=== PATIENT | female | born 1970 | race Caucasian/White ===

== ENCOUNTER 2016-11-13 23:20 | Observation (INO) ==
--- NOTE | 2016-11-14 00:06 | Emergency Department Note ---
Alexander Echavarria Gwan, am scribing for, and in the presence of, Alfonso Sparks MD 23:56. Bridger Echavarria Robert M, MD, personally performed the services described in this documentation, ascribed by Jayme Munoz in my presence, and it is both accurate and complete . Arrival - Arrival Chief Complaint: Chest Pain Stated Complaint: CHEST PAIN ED Nursing Triage Note: PT ARRIVES VIA EMS FOR FURTHER EVALUATION OF CHEST PAIN. PT STATES THAT PAIN STARTED AROUND 1800 TODAY. DENIES ANY SOB OR N/V. PT COMPLAINS OF PAIN TO CENTER OF CHEST AT 6/10. Mode of Arrival: Stretcher Limitations: No Limitations Source: Patient, Old Records Reviewed, RN Notes Reviewed Time Seen by Provider: 11/13/16 23:37 - History of Present Illness HPI Narrative: Pt is a 45 y/o female, with a hx of IA, who presents to the ED with a c/o chest pain, WILCOX and right shoulder blade pain with an onset of 1800 today. Patient confirmed that she has stents placed by Dr. Yony Esquivel in [place], that she regularly take Metoprolol and Plaquenil for HTN / RA and that she occasionally take pain medications. She denies any other problems/concerns while in ED. Nurses note that pt reported her pain as a 6 out of 10 and that her pain is located in the center of her chest. Onset (ago): hour(s) Consistency: constant Severity: mild Date of Last Menstrual Period: HYST Allergies/Adverse Reactions: Allergies Allergy/AdvReac Type Severity Reaction Status Date / Time morphine Allergy RASH Verified 11/13/16 23:26 Home Medications: Home Medications Medication Instructions Recorded Confirmed Type Unable To Obtain [Unable to Obtain] 11/13/16 11/13/16 History Review of System - Review of System 12 point system: reviewed and no additional remarkable complaints except as stated - Review of System Cardiovascular: Present: as per HPI, chest pain Neurological: Present: as per HPI, headache Medical,Surgical,& Family Hx - Medical History Cardio: History of: IA (X 3) - Surgical History Cardiac Surgeries: Sugical HX of: Cardiac Catheterization (STENTS) - Social History Smoking Status: Never smoker Frequency of Alcohol Use: None Type of Drug Use: None Exam Vital Signs: Vital Signs Temperature 98.2 F 11/13/16 23:20 Pulse Rate 61 11/13/16 23:52 Respiratory Rate 14 11/13/16 23:52 Blood Pressure 124/70 11/13/16 23:52 O2 Sat by Pulse Oximetry 100 11/13/16 23:52 - General General appearance: alert - Head Head exam: Present: atraumatic, normocephalic - Eye Eye exam: Present: normal appearance, PERRL, EOMI - ENT ENT exam: Present: normal oropharynx, mucous membranes moist, TM's normal bilaterally, normal external ear exam - Neck Neck exam: Present: full ROM, trachea midline. Absent: tenderness, meningismus - Chest Chest inspection: Present: symmetric chest wall rise. Absent: tenderness - Respiratory Respiratory exam: Present: normal lung sounds bilaterally. Absent: respiratory distress - Cardiovascular Cardiovascular exam: Present: regular rate, normal rhythm, normal heart sounds. Absent: murmur, rubs, gallop - Abdominal Exam Abdominal exam: Present: soft, normal bowel sounds. Absent: distention, tenderness, guarding - Extremities Exam Extremities exam: Present: full ROM. Absent: tenderness, pedal edema, calf tenderness - Back Exam Back exam: Present: full ROM. Absent: tenderness - Neurological Exam Neurological exam: Present: alert, oriented X3, CN II-XII intact. Absent: motor sensory deficit - Psychiatric Psychiatric exam: Present: normal affect, normal mood - Skin Skin exam: Present: warm, dry, intact, normal color Course - Consultations Consultation #1: Dr. Nahid Alfaro will evaluate and admit the patient. Time: 00:30 Results - Labs Lab Results: I have reviewed the patients labs Labs: Total Creatine Kinase 1081 U/L (26-192) H 11/13/16 23:27 CK-MB (CK-2) 2.2 U/L (0.5-3.6) 11/13/16 23:27 Troponin I < 0.015 NG/ML (0.00-0.045) 11/13/16 23:27 Disposition Clinical Impression: Chest pain, Rheumatoid arthritis, Chronic pain Case discussed with: patient, patient's family Disposition: Still a Patient Condition: Stable Time of Disposition: 00:32
[2016-11-14 00:16] LABS: Troponin I Only < 0.015 NG/ML (0.00-0.045)
--- NOTE | 2016-11-14 01:54 | Hospitalist History & Physical ---
Assessment and Plan (1) Atypical chest pain Status: Acute Current Visit: Yes (2) Coronary artery disease Status: Acute Current Visit: Yes (3) History of NE (myocardial infarction) Status: Acute Current Visit: Yes (4) History of coronary artery stent placement Status: Acute Current Visit: Yes (5) Chronic pain Status: Acute Current Visit: Yes (6) Hypertension Status: Acute Current Visit: Yes (7) Rheumatoid arthritis Status: Acute Assessment and plan: Plan: 11/14: Chest pain seems atypical, possible musculoskeletal component given reproducibility with movement of the left arm and shoulder. However, she does have a significant cardiac history. We'll obtain another set of cardiac enzymes , monitor on telemetry and may obtain cardiology consultation the morning. Treat supportively for pain and nausea. Current Visit: Yes History of Present Illness Chief complaint: chest pain starting around 6 p.m. History of present illness: Ms. 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 She states her first heart attack was around age 31 and 32. She also states she's had "a stent after one of her heart attacks." She states she had a left heart cath in April by Dr. Esquivel, which she states was "normal." She states around 6 p.m. she was driving and felt sharp stabbing chest pain radiating through to her back. She rated it at out of 10. She states the pain waxed and waned over "a couple hours," but did not resolve and she came to the hospital. She states she has "an upper aortic aneurysm," however CT PE protocol was done showing no acute findings including no PE, no thoracic aortic aneurysm no pericardial effusion. Her main complaint right now is pain when she moves her left arm. She states "I've been doing CrossFit training for the last 6 days." At the end of the interview/exam she reported having some bright red rectal bleeding this morning 2 episodes. Normal H&H at the outside hospital. Home Medications Medication Instructions Recorded Confirmed Type Unable To Obtain [Unable to Obtain] 11/13/16 11/13/16 History Allergies Allergy/AdvReac Type Severity Reaction Status Date / Time morphine Allergy RASH Verified 11/13/16 23:26 Medical,Surgical,& Family Hx - Medical History Cardio: History of: Hypertension, NE (X 3) Endocrine: No history of: Diabetes Mellitus (NIDDM) Rheumatology: History of;: Rheumatoid Arthritis Respiratory: No history of: COPD Musculoskeletal: History of: Musculoskeletal Problems ("chronic pain") - Surgical History Cardiac Surgeries: Sugical HX of: Cardiac Catheterization (STENTS) Abdominal Surgeries: Surgical HX of: Appendectomy Reproductive Surgeries: Surgical HX of;: Tubal Ligation - Family History Family History: Reports;: Family Heart Disease - Social History Smoking Status: Never smoker Frequency of Alcohol Use: None Type of Drug Use: None Marital Status: Unknown Functional capacity: independent ambulation Review of systems: A 12 point review of systems is negative except as specified in the HPI Exam - Constitutional Vitals: Period Temp Pulse Resp BP Sys/Ramey Pulse Ox Last 24 Hr 98.2 F 61-73 14-18 111-124/70-78 98-100 Exam: EXAM: CONSTITUTIONAL: non toxic, NAD HEENT: NC, AT, OP benign, REECE, EOMI CV: RRR no m/g/r, pain is not reproducible with chest wall palpation however somewhat reproducible with movement of the left arm and shoulder RESP: clear B/L, no w/r/r GI: abd soft, NT, ND, +bowel sounds INTEGUMENTARY: no lesions or rash EXTREMITIES: no c/c/e NEURO: no focal deficits PSYCH: unremarkable, A/O x3 Results - Labs Lab Results: I have reviewed the past 24 hour labs - EKG EKG shows: sinus rhythm - Diagnostic Findings Procedure: CT - chest: image reviewed by me, report reviewed by me
[2016-11-14] MEDS ORDERED: BISACODYL 5 MG TABLET PO PRN (02:04)
[2016-11-14] MEDS ORDERED: ACETAMINOPHEN 325 MG TABLET PO PRN (02:04)
[2016-11-14] MEDS: ONDANSETRON 4 MG/2 ML VIAL IV PRN ×5 (03:10→19:44)
[2016-11-14] MEDS: HYDROmorphone 2 MG/1 ML VIAL IV PRN ×5 (03:18→19:43)
[2016-11-14 06:02] LABS: Basophils % 0.3 % (0.0-0.8); Eosinophils # 0.1 10*3/uL (0.0-0.87); Eosinophils % 0.9 % (0.00-10.9); Hematocrit 37.7 VOL% (35.7-47.0); Hemoglobin 12.7 GM/DL (12.0-16.0); Immature Granulocytes % 0.4 %; Immature Granulocytes Absolute 0.03 #; Lymphocytes # 1.5 10*3/uL (1.4-4.0); Lymphocytes % 21.4 % (21.3-54.2); Mean Corpuscular HGB Conc 33.7 GM/DL (32-36); Mean Corpuscular Hemoglobin 32 PG (27-34); Mean Corpuscular Volume 95.2 FL (87-102); Mean Platelet Volume 8.9 FL (9.6-12.0); Monocytes # 0.6 10*3/uL (0.11-0.8); Monocytes % 8.8 % (1.7-12.7); Neutrophils # 4.8 10*3/uL (1.4-7.4); Neutrophils % 68.2 % (38.7-73.9); Platelet Count 219 T/CUMM (130-400); Red Blood Count 3.96 MC/CUMM (3.8-5.5); Red Cell Distribution Width 12.7 % (9.3-17.3)
[2016-11-14 06:29] LABS: Albumin 3.5 G/DL (3.4-5.0); Bilirubin,Total 0.7 MG/DL (0.2-1.0); Calcium 8.2 MG/DL (8.5-10.1); Osmolality,Calculated 284.8 MOS/KG (273-304); Potassium 3.5 MMOL/L (3.5-5.1); Risk Ratio 2.01; Total Protein 6.4 G/DL (6.4-8.3); VLDL CHOLESTEROL 12.2 MG/DL
[2016-11-14 06:30] LABS: Troponin I Only < 0.015 NG/ML (0.00-0.045)
--- NOTE | 2016-11-14 07:52 | CT Report ---
Exam: CT chest PE study Date: 11/13/2016 11:43 PM Comparison: None Indication: Chest pain Technique: Sequential axial scans of the chest were obtained after the injection of 80 cc of Omnipaque 350. Coronal and sagittal 2-D reconstructions were obtained. This exam was initially interpreted by [facility]. Total DLP: 248.40 Findings: The heart is minimally enlarged with no pericardial effusion. No evidence of aortic dissection or pulmonary emboli. No chest lymphadenopathy with small hiatal hernia. Pneumobilia with prior cholecystectomy and minimal dilatation of the bile ducts. Degenerative changes are noted. Calcified granulomata with atelectasis/infiltration/scarring especially in the lower lobes with adjacent minimal diffuse pleural thickening. Impression: No definite pulmonary emboli. The heart is minimally enlarged with small hiatal hernia. Prior cholecystectomy with pneumobilia and minimal dilatation of the bile ducts. Old healed granulomatous disease with minimal atelectasis/infiltration/scarring in the lower lobes with associated diffuse minimal pleural thickening. PROCEDURE INTERPRETED AT [facility] DEPARTMENT OF RADIOLOGY Final Report Signed by: Dr. Chelle Cooper
[2016-11-14] MEDS ORDERED: PANTOPRAZOLE 40 MG TABLET PO SCH (09:00)
--- NOTE | 2016-11-14 10:23 | EKG Report ---
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
[2016-11-14] MEDS ORDERED: ALUM/MAG/SIMETH/LIDO VISC 1:1 30 ML BOTTLE PO ONE (16:20)
[2016-11-14] MEDS ORDERED: ASPIRIN EC 81 MG TABLET PO SCH (16:30)
[2016-11-14] MEDS: SODIUM CHLORIDE 0.9% 1,000 ML IV SCH (16:46)
[2016-11-14] MEDS: PANTOPRAZOLE 40 MG VIAL IV SCH (16:57)
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
--- NOTE | 2016-11-14 18:44 | CT Report ---
Exam: CT abdomen pelvis wo con Date: 11/14/2016 4:20 PM Comparison: CT chest, 11/13/2016 Indication: Intractable nausea and vomiting Technique: Sequential axial scans of the abdomen and pelvis were obtained without contrast. Coronal and sagittal 2-D reconstructions were obtained. Total DLP: 307.50 Findings: The heart is minimally enlarged with atelectasis/scarring at the visualized lung bases. The liver is normal in size with prior cholecystectomy with significant pneumobilia. Dilatation of bile ducts with CBD measuring 12 mm. The spleen, pancreas, adrenal glands, and right kidney have an unremarkable appearance. 2 mm 2 mm 1 mm lower pole left renal calculi with probable tiny left midpole renal cyst. No ureteral calculi are identified. There is retained contrast in the urinary tract from recent CT of the chest. There aorta is normal in size with no adjacent adenopathy. Small hiatal hernia with no dilatation of the small bowel. Diverticulosis of the colon with no evidence of diverticulitis, appendicitis, free air, or free fluid. Nodes in the right lower quadrant which are borderline in size. Status post hysterectomy with small cysts/follicles in the ovaries. Degenerative changes are noted. Impression: Minimal cardiomegaly with atelectasis/scarring at the lung bases. Prior cholecystectomy is significant pneumobilia. Minimal dilatation of the bile ducts with CBD measuring 12 mm. If the patient has bile duct symptoms, ERCP or MRCP may be helpful for further evaluation. No calcified stones or definite mass identified. Nonobstructing left renal calculi with probable tiny left midpole renal cyst. Retained contrast in urinary bladder. Small hiatal hernia with diverticulosis of the colon. Limited evaluation of bowel without oral contrast. Nodes in the right lower quadrant which are borderline in size. Prior hysterectomy with small cysts/follicles in the ovaries. PROCEDURE INTERPRETED AT [facility] DEPARTMENT OF RADIOLOGY Final Report Signed by: Dr. Chelle Cooper
[2016-11-14 18:45] LABS: Troponin I Only < 0.015 NG/ML (0.00-0.045)
--- NOTE | 2016-11-14 18:46 | XRay Report ---
Exam: XR KUB Date: 11/14/2016 4:20 PM Comparison: None Indication: Intractable nausea and vomiting Technique: Supine abdomen Findings: Nonobstructed bowel gas pattern. Prior cholecystectomy with pneumobilia. Minimal dextroscoliosis of the lumbar spine with degenerative changes. Minimal retained contrast in urinary tract. Impression: Nonobstructed bowel gas pattern. Prior cholecystectomy with pneumobilia. PROCEDURE INTERPRETED AT [facility] DEPARTMENT OF RADIOLOGY Final Report Signed by: Dr. Chelle Cooper
[2016-11-15] MEDS: ONDANSETRON 4 MG/2 ML VIAL IV PRN ×4 (00:16→21:31)
[2016-11-15] MEDS: HYDROmorphone 2 MG/1 ML VIAL IV PRN ×6 (00:16→21:30)
[2016-11-15] MEDS: SODIUM CHLORIDE 0.9% 1,000 ML IV SCH ×2 (05:05→21:30)
[2016-11-15 05:30] LABS: Basophils % 0.4 % (0.0-0.8); Eosinophils # 0.1 10*3/uL (0.0-0.87); Eosinophils % 1.3 % (0.00-10.9); Hematocrit 39.6 VOL% (35.7-47.0); Hemoglobin 13.3 GM/DL (12.0-16.0); Immature Granulocytes % 0.4 %; Immature Granulocytes Absolute 0.02 #; Lymphocytes # 1.6 10*3/uL (1.4-4.0); Lymphocytes % 29.1 % (21.3-54.2); Mean Corpuscular HGB Conc 33.6 GM/DL (32-36); Mean Corpuscular Hemoglobin 32 PG (27-34); Mean Corpuscular Volume 95.4 FL (87-102); Mean Platelet Volume 8.9 FL (9.6-12.0); Monocytes # 0.4 10*3/uL (0.11-0.8); Monocytes % 8.1 % (1.7-12.7); Neutrophils # 3.3 10*3/uL (1.4-7.4); Neutrophils % 60.7 % (38.7-73.9); Platelet Count 213 T/CUMM (130-400); Red Blood Count 4.15 MC/CUMM (3.8-5.5); Red Cell Distribution Width 12.6 % (9.3-17.3); White Blood Count 5.4 T/CUMM (4-12)
[2016-11-15 06:08] LABS: Albumin 3.4 G/DL (3.4-5.0); Bilirubin,Total 0.9 MG/DL (0.2-1.0); Calcium 8.4 MG/DL (8.5-10.1); Potassium 3.9 MMOL/L (3.5-5.1); Total Protein 6.2 G/DL (6.4-8.3)
[2016-11-15] MEDS: PANTOPRAZOLE 40 MG VIAL IV SCH (08:30)
[2016-11-15] MEDS: PROMETHAZINE 25 MG/1 ML VIAL IM PRN ×2 (10:15→17:00)
--- NOTE | 2016-11-15 11:41 | Cardiology Progress Note ---
<Georgina Dennison E - Last Filed: 11/15/16 11:25> Assessment and Plan - Time spent with patient Time spent with patient: Less than 30 minutes (1) Dyslipidemia Status: Chronic Assessment and plan: See plan of care listed below Current Visit: Yes (2) Rheumatoid arthritis Status: Chronic Assessment and plan: See plan of care listed below Current Visit: Yes (3) Chronic pain Status: Chronic Assessment and plan: See plan of care listed below Current Visit: Yes (4) Atypical chest pain Status: Acute Assessment and plan: See plan of care listed below Current Visit: Yes (5) Coronary artery disease Status: Chronic Assessment and plan: See plan of care listed below Current Visit: Yes (6) History of coronary artery stent placement Status: Chronic Assessment and plan: See plan of care listed below Current Visit: Yes Cardiology - PN: Subj Interval history: 45-year-old woman routinely followed by Dr. Yony Esquivel in [place], [place]. She was transferred to our emergency department he was 2016 after experiencing chest pain. She has a history of known coronary artery disease. It is reported her first myocardial infarction was around 31 and again at 32. She reportedly had a stent after one of her heart attacks. She had a cardiac catheterization in April [address] Esquivel and received favorable results not requiring additional PCI. She also reported she had "an upper aortic aneurysm". She underwent CT of chest showing no acute findings including no pulmonary emboli, no thoracic aortic aneurysm and no pericardial effusion. She reported the worst discomfort was primarily left arm pain and shoulder pain which was reproducible with movement. She had been working out doing heavy CrossFit training for the past 2 weeks which was unusual for her to participate in that level of physical activity. Total CK at its highest 1081 and trending down to 477. Troponins are negative. EKG does not reveal an acute event. She was scheduled for stress testing this morning when she became nauseated and experienced a significant amount of vomiting. Stress test was canceled and she has been returned to her telemetry room. She is just received Phenergan. Her is at the bedside. She is feeling better at this time and we will plan to proceed with stress testing in the morning. ASSESSMENT/PLAN: 1. CHEST PAIN AND LEFT SHOULDER/ARM PAIN - suspect overuse injury. Troponins negative. EKG unremarkable. Stress test in the morning as she is experiencing severe nausea and vomiting at this time. Will order EKG. 2. KNOWN CAD - continue current plan of care. 3. DYSLIPIDEMIA - LDL 82. 4. RHEUMATOID ARTHRITIS - takes Plaquenil. 5. NAUSEA AND VOMITING - Amylase and Lipase WNL 6. CHRONIC PAIN - receiving narcotics for pain control 7. OVERUSE SYNDROME - CPK elevation related to aggressive working out at [employer], well-above her usual activities. Exam (Progress Note) - Constitutional Vitals: Period Temp Pulse Resp BP Sys/Ramey Pulse Ox Last 24 Hr 97 F-98.5 F 66-90 15-20 100-132/62-89 94-99 General: Pleasant and cooperative. Awake and alert. HEENT: PERRL, normocephalic, atraumatic. Mucous membranes moist. No jaundice noted. Conjunctiva moist and clear, sclerae anicteric Neck: No JVD/HJR, no thyromegaly or lymphadenopathy noted. No carotid bruit appreciated Cardiac: Regular rate and rhythm. No murmur rub or gallop. Lungs: Clear to auscultation without accessory muscle use to assist the respiratory pattern. Not requiring oxygen. Abdomen: Soft, bowel sounds normoactive. Nontender and nondistended. No abdominal bruit or thrill noted. No masses noted. Musculoskeletal: No fluid collection. Decreased range of motion is noted. Extremities: No clubbing, cyanosis noted. No edema noted. Upper extremity pulses 2+. Lower extremity pulses 2+. Capillary refill less than 3 seconds. Skin: No unusual lesions or rashes. No skin breakdown appreciated. Neuro: Awake, alert and oriented 3. Moves all extremities well without hemiparesis or paralysis. No essential tremor is appreciated. Result/EKG - Labs CBC & BMP: 11/15/16 04:54 11/15/16 04:54 Lab Results: I have reviewed the past 24 hour labs Labs: Laboratory Results - last 24 hr 11/14/16 11/14/16 11/15/16 17:52 17:52 04:54 WBC 5.4 RBC 4.15 Hgb 13.3 Hct 39.6 MCV 95.4 MCH 32 MCHC 33.6 RDW 12.6 Plt Count 213 MPV 8.9 L Neut % (Auto) 60.7 Lymph % (Auto) 29.1 Sutton % (Auto) 8.1 Eos % (Auto) 1.3 Baso % (Auto) 0.4 Neut # (Auto) 3.3 Lymph # (Auto) 1.6 Sutton # (Auto) 0.4 Eos # (Auto) 0.1 Baso # (Auto) 0.0 Immature Gran % 0.4 Nucleated RBC % 0.0 Immature Gran # 0.02 Nucleated RBCs # 0.00 Sodium Potassium Chloride Carbon Dioxide Anion Gap BUN Creatinine GFR Calculation BUN/Creatinine Ratio Glucose Calculated Osmolality Calcium Total Bilirubin AST ALT Alkaline Phosphatase Total Creatine Kinase 477 H D CK-MB (CK-2) 1.4 Troponin I < 0.015 Total Protein Albumin Globulin Albumin/Globulin Ratio Amylase 51 Lipase 157.0 11/15/16 04:54 WBC RBC Hgb Hct MCV MCH MCHC RDW Plt Count MPV Neut % (Auto) Lymph % (Auto) Sutton % (Auto) Eos % (Auto) Baso % (Auto) Neut # (Auto) Lymph # (Auto) Sutton # (Auto) Eos # (Auto) Baso # (Auto) Immature Gran % Nucleated RBC % Immature Gran # Nucleated RBCs # Sodium 143 Potassium 3.9 Chloride 106 Carbon Dioxide 26 Anion Gap 14.9 BUN 15 Creatinine 0.60 GFR Calculation 110 BUN/Creatinine Ratio 25.00 H Glucose 70 L Calculated Osmolality 283.0 Calcium 8.4 L Total Bilirubin 0.90 AST 24 ALT 26 Alkaline Phosphatase 132 H Total Creatine Kinase CK-MB (CK-2) Troponin I Total Protein 6.2 L Albumin 3.4 Globulin 2.8 Albumin/Globulin Ratio 1.2 Amylase Lipase - Diagnostic Findings Procedure: CT - chest: report reviewed by me - EKG EKG results: interpreted by me EKG shows: sinus rhythm Quality Measures - VTE Contraindication to Pharmacological VTE Prophylaxis: High Risk of Bleeding <Raman Causey - Last Filed: 11/15/16 14:35> Cardiology - PN: Subj Interval history: I have seen, interviewed, examined the patient and reviewed his chart and discussed the case with the mid-level provider and agree with the plan as outlined in the note. Exam (Progress Note) - Constitutional Vitals: Period Temp Pulse Resp BP Sys/Ramey Pulse Ox Last 24 Hr 97 F-98.5 F 66-86 15-20 111-132/68-89 94-99 Result/EKG - Labs CBC & BMP: 11/15/16 04:54 11/15/16 04:54 Labs: Laboratory Results - last 24 hr 11/14/16 11/14/16 11/15/16 17:52 17:52 04:54 WBC 5.4 RBC 4.15 Hgb 13.3 Hct 39.6 MCV 95.4 MCH 32 MCHC 33.6 RDW 12.6 Plt Count 213 MPV 8.9 L Neut % (Auto) 60.7 Lymph % (Auto) 29.1 Sutton % (Auto) 8.1 Eos % (Auto) 1.3 Baso % (Auto) 0.4 Neut # (Auto) 3.3 Lymph # (Auto) 1.6 Sutton # (Auto) 0.4 Eos # (Auto) 0.1 Baso # (Auto) 0.0 Immature Gran % 0.4 Nucleated RBC % 0.0 Immature Gran # 0.02 Nucleated RBCs # 0.00 Sodium Potassium Chloride Carbon Dioxide Anion Gap BUN Creatinine GFR Calculation BUN/Creatinine Ratio Glucose Calculated Osmolality Calcium Total Bilirubin AST ALT Alkaline Phosphatase Total Creatine Kinase 477 H D CK-MB (CK-2) 1.4 Troponin I < 0.015 Total Protein Albumin Globulin Albumin/Globulin Ratio Amylase 51 Lipase 157.0 11/15/16 04:54 WBC RBC Hgb Hct MCV MCH MCHC RDW Plt Count MPV Neut % (Auto) Lymph % (Auto) Sutton % (Auto) Eos % (Auto) Baso % (Auto) Neut # (Auto) Lymph # (Auto) Sutton # (Auto) Eos # (Auto) Baso # (Auto) Immature Gran % Nucleated RBC % Immature Gran # Nucleated RBCs # Sodium 143 Potassium 3.9 Chloride 106 Carbon Dioxide 26 Anion Gap 14.9 BUN 15 Creatinine 0.60 GFR Calculation 110 BUN/Creatinine Ratio 25.00 H Glucose 70 L Calculated Osmolality 283.0 Calcium 8.4 L Total Bilirubin 0.90 AST 24 ALT 26 Alkaline Phosphatase 132 H Total Creatine Kinase CK-MB (CK-2) Troponin I Total Protein 6.2 L Albumin 3.4 Globulin 2.8 Albumin/Globulin Ratio 1.2 Amylase Lipase
--- NOTE | 2016-11-15 12:04 | CT Report ---
CT head/brain wo/w con Indication: Migraines Comparison: None Technique: Multiple axial tomographic images of the brain were obtained before and after the administration of 80 cc Omnipaque 350 intravenous contrast. Findings: Midline structures are nondisplaced. There is no acute intracranial hemorrhage or hydrocephalus. No abnormal postcontrast intracranial enhancement. Paranasal sinuses and mastoid air cells are clear. IMPRESSION: No acute intracranial abnormality demonstrated. PROCEDURE INTERPRETED AT [facility] DEPARTMENT OF RADIOLOGY Final Report Signed by: Dr Bartolo Paulino
--- NOTE | 2016-11-15 12:06 | Hospitalist Progress Note ---
Assessment and Plan (1) Intractable nausea and vomiting Status: Acute Assessment and plan: CT abd/pelvis showed prior cholecystectomy with significant pneumobilia, dilatation of bile ducts with CBD measuring 12mm.An ERCP vs MRCP has been recommended.KUB showed nonobstructed bowel gas pattern. Prior cholecystectomy with pneumobilia Plan -continue IVF, add Promethazine to Zofran -GI consult -PPI -consider reglan prn Current Visit: Yes (2) Atypical chest pain Status: Acute Assessment and plan: Troponins negative. EKG unremarkable. Stress test was canceled this am due to nausea, vomiting. Cardiology is following Current Visit: Yes (3) Migraine Status: Acute Assessment and plan: will get a CT head, add Fioricet prn, continue anti emetics Current Visit: Yes (4) Rheumatoid arthritis Status: Chronic Assessment and plan: appears stable Current Visit: Yes (5) History of coronary artery stent placement Status: Chronic Assessment and plan: Cardiology is following Current Visit: Yes (6) Chronic pain Status: Acute Assessment and plan: will get pain management consult Current Visit: Yes (7) Dilated bile duct Status: Acute Assessment and plan: CT abd/pelvis showed prior cholecystectomy with significant pneumobilia, dilatation of bile ducts with CBD measuring 12mm.An ERCP vs MRCP has been recommended Plan GI consult Current Visit: Yes Hospitalist: Subjective Interval history: Patient seen. She complains of intractable nausea and vomiting. She also complains of a headache, she has a history of Migraines.Her stress test was canceled this morning due to nausea and vomiting.CT abd/pelvis showed prior cholecystectomy with significant pneumobilia, dilatation of bile ducts with CBD measuring 12mm.An ERCP vs MRCP has been recommended. Exam - Constitutional Vitals: Period Temp Pulse Resp BP Sys/Ramey Pulse Ox Last 24 Hr 97 F-98.5 F 66-86 15-20 111-132/72-89 94-99 General appearance: no acute distress - Respiratory Respiratory exam: Present: clear to auscultation bilaterally - Cardiovascular Cardiovascular exam: Present: regular rate and rhythm - GI/Abdominal GI/Abdominal exam: Present: other (mild tenderness around the RLQ) - Extremities Exam Extremities exam: Present: normal inspection Results - Labs CBC & BMP: 11/15/16 04:54 11/15/16 04:54 Lab Results: I have reviewed the past 24 hour labs Quality Measures - VTE Contraindication to Pharmacological VTE Prophylaxis: High Risk of Bleeding
[2016-11-15] MEDS ORDERED: BUTALBITAL/ACETAMIN/CAFFEINE 50-325-40 MG TABLET PO PRN (12:12)
--- NOTE | 2016-11-15 12:21 | EKG Report ---
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
--- NOTE | 2016-11-15 15:51 | Gastrointestinal Consult Note ---
Assessment and Plan (1) Rectal bleeding Status: Acute Assessment and plan: This patient has a history of previous colonoscopy done 4-[address] Wellington in [place], [place]. This apparently did not show much. The patient has been doing great deal "power-lifting" it certainly may have engorged her hemorrhoids and caused the bleeding especially with this being painless. Since her home stone driller helper has done her colonoscopy in the past and she would take an additional day of prep in order to get her cleaned enough to be able to the colonoscopy here, I suggest she follow up with them in the office to repeat this in the near future. I clearly this is simply hemorrhoidal bleeding but we don't want to miss a proctitis or potential bleeding from a cancer may have been missed versus AVMs or diverticular bleed. Her hematocrit has not dropped significantly during her hospital stay in fact this is improved from 37-39%. They do not suspect that this bleeding is clinically significant. Current Visit: Yes (2) Abnormal CT of the abdomen Status: Acute Assessment and plan: The patient has a history of previous ERCP required for retained stones in her common bile duct and a sphincterotomy done with this procedure is likely resulted in the dilation of common bile duct and pneumobilia seen on CT scanning. Her liver function tests and white blood cell count are completely normal as are her pancreatic enzymes. I suspect that this is a residual from the procedure and not evidence of pathology. It may be in the future that if her alkaline phosphatase begins to elevate as does her bilirubin she may need to have the sludge from a chronically open common bile duct was dredged out using balloon during ERCP. As occurs when the bile acids deconjugated and precipitate in the common bile duct which is dilated anyway and/or exposed to the bacterial elements from the GI tract-- normally this area sterile. This is not a problem that requires addressing at this time however. Again, I would have her follow up with Dr. Felix who did her last ERCP, should she should develop jaundice and/or fevers again. Current Visit: Yes (3) Atypical chest pain Status: Acute Assessment and plan: This may be secondary to musculoskeletal pain most likely the possibility of reflux-induced/esophagitis induced atypical chest pain is certainly present but the patient states that she does not feel reflux symptoms, ever and is not interested in undergoing upper endoscopy. Would continue treating this symptomatically. Current Visit: Yes (4) Intractable nausea and vomiting Status: Acute Assessment and plan: This apparently is doing much better on simple use of Phenergan as a antinauseants. I personally would suggest keeping her on Protonix 40 mg prior to suppertime each night to suppress the acidity in her stomach. She be discharged tomorrow from a GI standpoint as we are not going to perform further procedures on her, and she has a long-term GI physician to follow with. I have given her a copy of the CT scan to compare with others taken in [place]. We' ll see the patient again tomorrow but I believe she can likely be discharged from a GI standpoint, as mentioned above. Current Visit: Yes History of Present Illness Chief complaint: rectal bleeding, dilated common bile duct on CT, atypical chest pain, N/V History of present illness: Ms. Hung is a 45 year old female who has a history of following with 2 gastroenterologists out of [place], [place], Dr. Felix and Dr. Wellington who had performed both ERCP and colonoscopy on the patient. The ERCP was done 2 years ago when the patient developed a septic picture with stone retention in the common bile duct requiring dredging/sphincterotomy. Note that this explains the patient's pneumobilia and dilated common bile duct seen on CT scan this admission. She does not have specific right upper quadrant pain nor is there elevations in her bilirubin/alkaline phosphatase or liver function tests. This is an old finding, patient reassured. She did however presented with atypical chest pain 11/14/16 and was evaluated by Dr. Ward of cardiology and felt to have elevations in her CK levels due to overuse with cross-fit training. The patient absolutely denies any reflux symptoms or heartburn. The pain is improved over time with less use of her muscles. CK levels have begun to return back to normal. She was due to get is cardiac stress test today. Her most recent cardiac catheterization done by her beef pluck trimmer and [place] was normal by report (beef pluck trimmer equals Dr. Yony Esquivel). She has had myocardial infarctions 3 by report, but able to maintain a strenuous exercise regimen at this point. She states that she can did lift 85 pounds, and that she been exercising 6 days straight when she developed atypical chest pain bringing her to the hospital. She does have some mild constipation and has noted some rectal bleeding lately that she thinks maybe hemorrhoids that she relates to her weightlifting. The rectal bleeding is less than a tablespoonful and is painless. Again note that the patient had a previous colonoscopy done 4-5 years ago by her stone driller helper Kanchan this was negative for abnormalities. She is planning on repeat presenting to them with this latest episode of bleeding to see if they want to do a repeat as an outpatient. This is appropriate. Home Medications Medication Instructions Recorded Confirmed Type Unable To Obtain [Unable to Obtain] 11/13/16 11/13/16 History Allergies Allergy/AdvReac Type Severity Reaction Status Date / Time morphine Allergy RASH Verified 11/13/16 23:26 Medical,Surgical,& Family Hx - Medical History Cardio: History of: Hypertension, AR (X 3) Endocrine: No history of: Diabetes Mellitus (NIDDM) Rheumatology: History of;: Rheumatoid Arthritis Respiratory: No history of: COPD Musculoskeletal: History of: Musculoskeletal Problems ("chronic pain") - Surgical History Cardiac Surgeries: Sugical HX of: Cardiac Catheterization (STENTS) Abdominal Surgeries: Surgical HX of: Appendectomy Reproductive Surgeries: Surgical HX of;: Tubal Ligation - Family History Family History: Reports;: Family Heart Disease - Social History Smoking Status: Never smoker Frequency of Alcohol Use: None Type of Drug Use: None Review of systems: Constitutional: Denies fever, chills, but the patient is complaining of recent nausea, and vomiting which prevented her stress test this morning. Eyes: Denies dry eyes, and scleral icterus HENT: Denies headaches Cardiovascular: Denies acute chest pain and claudication Respiratory: Patient had had some shortness of breath, this is improved she denies any further wheezing, and difficulty breathing, denies cough Gastrointestinal: As noted in the HPI Genitourinary: Denies dysuria and hematuria Neurologic: Denies vision loss, and loss of sensation Musculoskeletal: She does have some joint swelling, joint stiffness, and muscular soreness but not weakness. Psychiatric: Denies depression and alexandru symptoms Heme-Lymph: Denies easy bruising, lymph node enlargement or tenderness, night sweats, excessive bleeding Allergies-immunologic: Denies pruritus and rhinorrhea Exam - Constitutional Vitals: Period Temp Pulse Resp BP Sys/Ramey Pulse Ox Last 24 Hr 97 F-98.5 F 66-86 15-20 111-132/68-89 94-99 Exam: Constitutional: Well-developed, well-nourished, alert, and in no acute distress Head and face: Head: Normocephalic atraumatic Eyes: Conjunctiva without injection, no gross scleral icterus, pupils equal and round bilaterally Ears: Intact to conversation in both ears Nose: External appearance is normal, nares patent Mouth: Oral mucous membranes moist without erythema dentition noted to be without erosion Neck: Normal appearance, no masses or tenderness, trachea midline Thyroid: Gland midline and appropriate size for age Respiratory: Normal respiratory effort, clear to auscultation without wheezes, rhonchi or rales Cardiovascular: Regular rate and rhythm, normal S1, S2, the exam is without rubs, murmurs or gallops. Gastrointestinal: Very mild tenderness to deep palpation in the right upper quadrant, normal active bowel sounds, tone normal without rigidity or guarding, no masses present, no hepatomegaly, no spleen tip felt. Rectal exam showed brown stool small internal hemorrhoids and stool was noted to be guaiac negative. Lymphatic: Neck without adenopathy, axilla without lymphadenopathy present Musculoskeletal: Right and left lower extremities without evidence of edema Skin and subcutaneous tissue: No rashes or ulcerations noted, normal skin turgor, digits and nails without clubbing/cyanosis/deformities. Neurologic: The patient is grossly oriented to person place and time, cranial nerves show tongue movements are normal with normal tongue extrusion midline, light touch sensation is intact. Psychiatric: No hallucinations or delusions are present, does not appear depressed - Head Head exam: Present: normal inspection, normocephalic Results - Labs CBC & BMP: 11/15/16 04:54 11/15/16 04:54 Quality Measures - VTE Contraindication to Pharmacological VTE Prophylaxis: High Risk of Bleeding
[2016-11-16] MEDS: PROMETHAZINE 25 MG/1 ML VIAL IM PRN ×2 (01:09→10:10)
[2016-11-16] MEDS: HYDROmorphone 2 MG/1 ML VIAL IV PRN ×3 (01:09→10:11)
[2016-11-16] MEDS: ONDANSETRON 4 MG/2 ML VIAL IV PRN (04:38)
[2016-11-16 06:00] LABS: Calcium 8.5 MG/DL (8.5-10.1); Osmolality,Calculated 287.7 MOS/KG (273-304)
--- NOTE | 2016-11-16 09:22 | Cardiology Progress Note ---
Assessment and Plan (1) Dyslipidemia Status: Chronic Assessment and plan: See plan of care listed below Current Visit: Yes (2) Rheumatoid arthritis Status: Chronic Assessment and plan: See plan of care listed below Current Visit: Yes (3) Chronic pain Status: Chronic Assessment and plan: See plan of care listed below Current Visit: Yes (4) Atypical chest pain Status: Acute Assessment and plan: See plan of care listed below Current Visit: Yes (5) Coronary artery disease Status: Chronic Assessment and plan: See plan of care listed below Current Visit: Yes (6) History of coronary artery stent placement Status: Chronic Assessment and plan: See plan of care listed below Current Visit: Yes Cardiology - PN: Subj Interval history: 45-year-old woman routinely followed by Dr. Yony Esquivel in [place], [place]. She was transferred to our emergency department he was 2016 after experiencing chest pain. She has a history of known coronary artery disease. It is reported her first myocardial infarction was around 31 and again at 32. She reportedly had a stent after one of her heart attacks. She had a cardiac catheterization in April [address] Esquivel and received favorable results not requiring additional PCI. She also reported she had "an upper aortic aneurysm". She underwent CT of chest showing no acute findings including no pulmonary emboli, no thoracic aortic aneurysm and no pericardial effusion. She reported the worst discomfort was primarily left arm pain and shoulder pain which was reproducible with movement. She had been working out doing heavy [employer] training for the past 2 weeks which was unusual for her to participate in that level of physical activity. Total CK at its highest 1081 and trending down to 477. Troponins are negative. EKG does not reveal an acute event. She was scheduled for stress testing yesteday but was severely nauseated with vomiting. NPO for stress testing this morning. No additional chest pain overnight. ASSESSMENT/PLAN: 1. CHEST PAIN AND LEFT SHOULDER/ARM PAIN - suspect overuse injury. Troponins negative. EKG unremarkable. Stress test this morning. 2. KNOWN CAD - continue current plan of care. 3. DYSLIPIDEMIA - LDL 82. 4. RHEUMATOID ARTHRITIS - takes Plaquenil. 5. NAUSEA AND VOMITING - Amylase and Lipase WNL 6. CHRONIC PAIN - receiving narcotics for pain control 7. OVERUSE SYNDROME - CPK elevation related to aggressive working out at [employer], well-above her usual activities. Exam (Progress Note) - Constitutional Vitals: Period Temp Pulse Resp BP Sys/Ramey Pulse Ox Last 24 Hr 96.6 F-98.8 F 60-88 15-20 106-129/60-72 94-98 General appearance: normal weight, no acute distress - Head Head exam: Present: normocephalic, atraumatic - Eye Eye exam: Absent: nystagmus, periorbital swelling Pupils: Present: REECE, normal accommodation - ENT ENT exam: Present: normal external ear exam, normal oropharynx - Neck Neck exam: Absent: lymphadenopathy, tenderness, thyromegaly - Respiratory Respiratory exam: Present: clear to auscultation bilaterally, chest wall tenderness - Cardiovascular Cardiovascular exam: Present: regular rate and rhythm. Absent: carotid bruit - GI/Abdominal GI/Abdominal exam: Present: normal bowel sounds. Absent: tenderness - Extremities Exam Extremities exam: Present: normal capillary refill, full ROM. Absent: calf tenderness - Back Exam Back exam: Absent: CVA tenderness (L), CVA tenderness (R), muscle spasm - Neurological Exam Neurological exam: Present: alert, oriented X3, normal gait - Psychiatric Psychiatric exam: Present: normal affect, normal mood - Skin Skin exam: Present: warm. Absent: rash Result/EKG - Labs CBC & BMP: 11/15/16 04:54 11/16/16 04:50 Lab Results: I have reviewed the past 24 hour labs Labs: Laboratory Results - last 24 hr 11/16/16 04:50 Sodium 145 Potassium 4.0 Chloride 110 H Carbon Dioxide 27 Anion Gap 12.0 BUN 14 Creatinine 0.60 GFR Calculation 111 BUN/Creatinine Ratio 23.00 H Glucose 81 Calculated Osmolality 287.7 Calcium 8.5 Magnesium 2.0 - EKG EKG results: interpreted by me EKG shows: sinus rhythm Quality Measures - VTE Contraindication to Pharmacological VTE Prophylaxis: High Risk of Bleeding
--- NOTE | 2016-11-16 09:28 | Event Note ---
<Georgina Dennison - Last Filed: 11/16/16 09:26> Underwent stress testing and achieved THR without complaints of chest pain, heaviness or tightness. Did have frequent bigeminy during exercise. <1mm ST depression V4-V6 with exercise. Now to nuclear medicine for final scan. Dr. Causey to read, interpret and advise. <Raman Causey - Last Filed: 11/16/16 17:00> I think this was artifact on the EKG not bigeminy
[2016-11-16] MEDS: PANTOPRAZOLE 40 MG VIAL IV SCH (10:11)
--- NOTE | 2016-11-16 11:12 | Pain Management Consult Note ---
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 She agrees to d/c dilaudid and use chronic [place] 7,5 prn. She will f/u in [place] for GTB and gait therapy. Current Visit: Yes History of Present Illness Chief complaint: headache after SL nitro, NC chest pain, right hip pain History of present illness: Ms. Hung is a 45 year old female follwed by pain management in [place] for RA , spinal stenosis, and hip pain. She was working out more than usual developed chest pain and has ruled out for further RI. She has had reproducible cP that is resolving, underwent stress test this am. Headache from nitro also improving and this has happened in the past. Main complaint is right hip pain. On exam there is GTB and hip is intact without LBP ot IT band. She has known leg length discrepency and gait abnormality. She is provided [place] 7.5 in [place]. She agrees to D/C dilaudid and maintain [place] prn. Short course NSAID would be helpful for M/S pain and Creatinine is normal. CK was elevated and she should follow up in [place] to reassess this. She is not taking anti lipid medication. Home Medications Medication Instructions Recorded Confirmed Type Unable To Obtain [Unable to Obtain] 11/13/16 11/13/16 History Allergies Allergy/AdvReac Type Severity Reaction Status Date / Time morphine Allergy RASH Verified 11/13/16 23:26 Medical,Surgical,& Family Hx - Medical History Cardio: History of: Hypertension, RI (X 3) Endocrine: No history of: Diabetes Mellitus (NIDDM) Rheumatology: History of;: Rheumatoid Arthritis Respiratory: No history of: COPD Musculoskeletal: History of: Musculoskeletal Problems ("chronic pain") - Surgical History Cardiac Surgeries: Sugical HX of: Cardiac Catheterization (STENTS) Abdominal Surgeries: Surgical HX of: Appendectomy Reproductive Surgeries: Surgical HX of;: Tubal Ligation - Family History Family History: Reports;: Family Heart Disease - Social History Smoking Status: Never smoker Frequency of Alcohol Use: None Type of Drug Use: None Quality Measures - VTE Contraindication to Pharmacological VTE Prophylaxis: High Risk of Bleeding Exam - Constitutional Vitals: Period Temp Pulse Resp BP Sys/Ramey Pulse Ox Last 24 Hr 96.6 F-98.8 F 60-88 15-20 106-129/60-72 94-98 Results - Labs CBC & BMP: 11/15/16 04:54 11/16/16 04:50
--- NOTE | 2016-11-16 11:13 | Discharge Summary ---
<Jaimee Shea - Last Filed: 11/16/16 11:05> Hospital Course - Hospital Course Hospital Course: Ms. Hung was admitted on 11/14/16 for atypical chest pain, HTN, and RA. It was felt that her chest pain was atypical and a likely musculoskeletal compontent, but she does have a significant cardiac history and was admitted for further work up. She states that she has a hx of HTN, and "3 heart attacks". She also mentioned that she had been having some bright red rectal bleeding this morning x 2 episodes with a normal H/H. Cardiology was consulted and saw on 11/14. Her troponin was negative x 2. It was felt that that her chest pain was musculoskeletal due to recent crossfit training. Her EKG and serial troponins have been negative. However, she developed severe nausea and vomiting and repeat EKG and stress test was ordered. Amylase and lipase were normal. CPK was elevated due to aggressive work out at [employer]. CT abdomen/pelvis showed significant pneumobilia, dilation of bile ducts with CBD at 12 mm. ERCP vs MRCP was recommended. She was started on IVF's, Phenergan added to zofran, GI consult and Reglan PRN. Dr. Lundy saw her in GI consultation on 11/15 for her rectal bleeding and abnormal CT of the abdomen. He felt that she should be scoped by her GI physician, Dtr. Felix who performed her last ERCP. This morning, she underwent stress testing that resulted in frequent bigeminy during exercise with < [address] depression with exercise. She will be discharged this morning with appropriate medication and follow up. - Time spent with patient Time with patient DS: Greater than 30 minutes (due to plan, doc and med rec.) Diagnosis - Discharge Diagnosis (1) Abnormal CT of the abdomen Status: Acute (2) Atypical chest pain Status: Acute (3) Dilated bile duct Status: Acute (4) History of MA (myocardial infarction) Status: Acute (5) Intractable nausea and vomiting Status: Acute (6) Rectal bleeding Status: Acute (7) Rheumatoid arthritis Status: Acute (8) History of coronary artery stent placement Status: Chronic Discharge Plan - Discharge Data Disposition: Disch To Home/Self Care - Discharge Medications New Bisacodyl Tab [Dulcolax Tab] 10 mg PO DAILY PRN #20 tablet PRN Reason: Constipation Acetaminophen Tab [Tylenol Tab] 325 mg PO Q4H PRN #0 tablet PRN Reason: fever, headache/body aches HYDROcodone/ACETAMIN 7.5-325 [[place]eflin 7.5-325] 1 tablet PO Q4H PRN #20 tablet PRN Reason: Pain Moderate (4-7) - Follow Up or Referral - Forms/Instructions Exam - Constitutional Vitals: Period Temp Pulse Resp BP Sys/Ramey Pulse Ox Last 24 Hr 96.6 F-98.8 F 60-88 15-20 106-129/60-72 94-98 Discharge Results Procedures and tests throughout hospitalization: Pending Orders 11/14/16 16:21 Helicobacter pylori Ag Feces Routine 11/16/16 04:00 NM deyanira perf SPECT rest or str IN AM Labs on day of discharge: Labs from last 24 hours 11/16/16 04:50 Sodium 145 Potassium 4.0 Chloride 110 H Carbon Dioxide 27 Anion Gap 12.0 BUN 14 Creatinine 0.60 GFR Calculation 111 BUN/Creatinine Ratio 23.00 H Glucose 81 Calculated Osmolality 287.7 Calcium 8.5 Magnesium 2.0 DS: Provider Date of admission: 11/14/16 02:04 Primary care physician: . No PCP Attending physician on admission: Marian Leung MD Consults: 11/15/16 10:00 Consult to Physician [CONS] Routine Comment: Consulting Provider: Brandon Lundy Consult to Specialist Group: Gastroenterology When should Consulting Provider be notified: Now Person Notified: HAIR Date Notified: 11/15/16 Time Notified: 10:10 11/15/16 12:17 Consult to Physician [CONS] Routine Comment: GI bleed, N/V Consulting Provider: Brandon Lundy Consult to Specialist Group: Gastroenterology When should Consulting Provider be notified: Now Person Notified: HAIR Date Notified: 11/15/16 Time Notified: 10:10 11/15/16 12:19 Consult to Physician [CONS] Routine Comment: Consulting Provider: Trey Najera Consult to Specialist Group: Pain Management When should Consulting Provider be notified: In am Person Notified: JEMAL Date Notified: 11/15/16 Time Notified: 14:55 Discharging clinician: Jaimee Shea NP Expected date of discharge: 11/16/16 <Marian Leung - Last Filed: 11/16/16 11:57> Hospital Course - Hospital Course Hospital Course: We will await full stress report from Dr Causey and if ok, we will dc and she will follow up with him. She will also follow up with her GI Dr Felix as scheduled - Time spent with patient Time with patient DS: Greater than 30 minutes Diagnosis - Discharge Diagnosis (1) Intractable nausea and vomiting Status: Acute (2) Atypical chest pain Status: Acute (3) Migraine Status: Acute (4) Rheumatoid arthritis Status: Chronic (5) History of coronary artery stent placement Status: Chronic (6) Chronic pain Status: Acute (7) Dilated bile duct Status: Acute Discharge Plan - Discharge Data Condition at Discharge: Stable Discharge Diet: heart healthy Activity: resume usual activities as tolerated Exam - Constitutional General appearance: no acute distress - Head Head exam: Present: normal inspection - Respiratory Respiratory exam: Present: clear to auscultation bilaterally - Cardiovascular Cardiovascular exam: Present: regular rate and rhythm - GI/Abdominal GI/Abdominal exam: Present: normal bowel sounds - Extremities Exam Extremities exam: Present: normal inspection
[2016-11-16] MEDS: SODIUM CHLORIDE 0.9% 1,000 ML IV SCH (15:49)
[2016-11-16 16:14] VITALS: BP 135/85
--- NOTE | 2016-11-16 19:53 | Nuclear Medicine Report ---
DATE: 11/16/2016 PROCEDURE: Stress myocardial perfusion study. The patient is a 45-year-old female with a history of coronary artery disease. She presented with s ome atypical chest pain symptoms. She is undergoing cardiac ischemic screening for cardiac risk mary luation. The patient underwent a rest myocardial perfusion study after a 10 mCi dose of Technetium-99m bound to Sestamibi. She then underwent a full Ashok protocol stress test. The patient exercised for a to apollo of 8 minutes and 10 seconds on a full Ashok protocol. During that time she had no clinical or E KG signs of cardiac ischemia. She had a normal hemodynamic response to exercise. She reached a max imum heart rate of 160 beats per minute, which is 91% of her age-predicted maximum. Near peak exerc ise, she received a 30 mCi dose of Technetium-99m bound to Sestamibi and repeat myocardial perfusion imaging was performed. Comparison of the stress and rest myocardial perfusion images reveals no ev idence of significant cardiac ischemia. There is some very mild breast attenuation in the anterolat eral/apical region, which is seen on both stress and rest images. Quantitative perfusion analysis c alculates a summed difference score of 3, which is consistent with a low-risk test. Quantitative ga liban images calculated as left ventricular ejection fraction of 48% with normal regional wall motion. IMPRESSIONS: 1. CLINICALLY AND ELECTRICALLY NEGATIVE MAXIMAL FULL ASHOK PROTOCOL STRESS TEST. 2. I SEE NO CONVINCING EVIDENCE OF CARDIAC ISCHEMIA ON PERFUSION IMAGING. 3. LEFT VENTRICULAR EJECTION FRACTION IS AT THE LOWER LIMITS OF NORMAL. CONCLUSION: These results are most consistent with a low risk test. Procedure performed and interpreted at [facility] Department of Radiology.
== END 2016-11-16 16:14 | disposition home or self-care (01) ==
LOC: N.EDINP 23:20 → N.ED 23:20 → N.TELES 11-14 02:33
PROVIDERS: ADMIT Internal Medicine; ATTEND Internal Medicine